=== PATIENT | female | born 1950 | race Hispanic/Latino ===

== ENCOUNTER 2018-07-11 11:57 | Observation (INO) | payer MEDICARE, BC ==
--- NOTE | 2018-07-11 12:49 | ED PDOC ---
Arrival/HPI - General Chief Complaint: Dizziness/Lightheaded Time Seen by Provider: 07/11/18 12:35 Historian: Patient - History of Present Illness Narrative History of Present Illness (Text): 07/11/18 13:12 67 yr old female w/ hx of Brain aneurysm + Clip, R eye blindness, CAD, x1 stent , HTN, DM2 p/w dizziness, now resolved. Pt notes that 2 hrs prior she was having dizziness, constant, non-related to head movement. Pt notes dizziness as lightheadedness as well as vertigo. First time occurence. She also noted L eye blurriness, without eye pain or cloudiness to R eye. She notes her symptoms started improvving on their own, she then took a full 325mg aspirin which then fully resolved her symptoms. No chest pain. She notes mild sob, but no orthopnea , PND or leg swelling. No hx of DVT or blood clots. No recent trauma, surgery. No fever, chills or night sweats. No other complaints. PMD: Dr. Jarek Reyes Past Medical History - Provider Review Nursing Documentation Reviewed: Yes - Infectious Disease Hx of Infectious Diseases: None - Reproductive Menopause: Yes - Cardiac Hx Cardiac Disorders: Yes Hx Hypertension: Yes Other/Comment: cariac stent, - Pulmonary Hx Respiratory Disorders: No - Neurological Hx Neurological Disorder: Yes Other/Comment: barin anerysm with clip - HEENT Hx HEENT Disorder: No Hx Blind: Yes - Renal Hx Renal Disorder: No - Endocrine/Metabolic Hx Endocrine Disorders: No - Hematological/Oncological Hx Blood Disorders: No - Integumentary Hx Dermatological Disorder: No - Musculoskeletal/Rheumatological Hx Musculoskeletal Disorders: No - Gastrointestinal Hx Gastrointestinal Disorders: No - Genitourinary/Gynecological Hx Genitourinary Disorders: No - Psychiatric Hx Substance Use: No - Anesthesia Hx Anesthesia: Yes Hx Anesthesia Reactions: No Family/Social History - Physician Review Nursing Documentation Reviewed: Yes Family/Social History: Unknown Family HX Smoking Status: Smoker Currrent Status Unknown Hx Alcohol Use: Yes Frequency of alcohol use: Socially Hx Substance Use: No Allergies/Home Meds Allergies/Adverse Reactions: Allergies No Known Allergies Allergy (Verified 12/21/16 13:03) Home Medications: Home Meds Medication Instructions Recorded Confirmed MetFORMIN [glucOPHAGE] 1,000 mg PO BID 12/21/16 07/11/18 [id number] Ethyl Esters 1 GM 1 gm PO DAILY 12/21/16 07/11/18 [Lovaza] Quinapril [Accupril] 20 mg PO DAILY 12/21/16 07/11/18 SITagliptin [Januvia] 50 mg PO DAILY 12/21/16 07/11/18 glyBURIDE [Glyburide] 5 mg PO DAILY 12/21/16 07/11/18 Aspirin [Ecotrin] 325 mg PO DAILY 07/11/18 07/11/18 Atorvastatin [Lipitor] 20 mg PO DAILY 07/11/18 07/11/18 Fenofibrate [Tricor] 145 mg PO DAILY 07/11/18 07/11/18 Hctz 25 25 mg PO DAILY 07/11/18 Ibuprofen [Advil] 800 mg PO TID 07/11/18 07/11/18 Metaxalone [Metaxall] 800 mg PO HS 07/11/18 07/11/18 Pregabalin [Lyrica] 75 mg PO TID 07/11/18 07/11/18 Review of Systems - Review of Systems Constitutional: Normal Eyes: Vision Changes (now resolved) Respiratory: Normal Cardiovascular: Normal Gastrointestinal: Normal Genitourinary Female: Normal Musculoskeletal: Normal Skin: Normal Neurological: Normal Endocrine: Normal Hemo/Lymphatic: Normal Psychiatric: Normal Physical Exam Vital Signs Temp Pulse Resp BP Pulse Ox 07/11/18 13:35 97 H 22 133/76 96 07/11/18 12:08 98.1 F 107 H 18 173/72 H 98 Temperature: Afebrile Blood Pressure: Normal Pulse: Regular Respiratory Rate: Normal Appearance: Positive for: Well-Appearing, Non-Toxic, Comfortable Pain Distress: None Mental Status: Positive for: Alert and Oriented X 3 Finger Stick Blood Glucose: 228 - Systems Exam Head: Present: Atraumatic, Normocephalic Pupils: Present: PERRL Extroacular Muscles: Present: EOMI Conjunctiva: Present: Normal Mouth: Present: Moist Mucous Membranes Neck: Present: Normal Range of Motion. No: Meningeal Signs Respiratory/Chest: Present: Clear to Auscultation, Good Air Exchange. No: Respiratory Distress, Accessory Muscle Use Cardiovascular: Present: Regular Rate and Rhythm, Normal S1, S2, Peripheal Pulses Present, Tachycardic. No: Murmurs, Bradycardic, Rub Abdomen: No: Tenderness, Distention, Peritoneal Signs Back: Present: Normal Inspection Upper Extremity: Present: Normal Inspection. No: Cyanosis, Edema Lower Extremity: Present: Normal Inspection. No: Edema Neurological: Present: GCS=15, CN II-XII Intact, Speech Normal, Motor Func Grossly Intact, Normal Sensory Function, Normal Cerebellar Funct, Norm Deep Tendon Reflexes, Gait Normal Skin: Present: Warm, Dry, Normal Color. No: Rashes Psychiatric: Present: Alert, Oriented x 3, Normal Insight, Normal Concentration Medical Decision Making ED Course and Treatment: 07/11/18 13:01 67 yr old female w/ hx of brain aneurysm w/ clip, HTN, DM2, CAD, x1 stent p/w TIA like symptoms which resolved after ASA. She notes SOB is mild improving. She denies any CP. No urinary complaints. No fever, chills or meningeal signs. Code stroke called at this time at 13:01. Fingerstick reading is 228. EKG: Ordered, reviewed, and independently interpreted the EKG. Rate : 110 BPM Rhythm : Sinus tachycardia. Interpretation : No STEMI. No ST-segment elevations or depressions, no T-wave inversions, normal intervals. Comparison : Previous 07/11/18 13:17 Appreciate consult w/ Dr. Reyes: likely obs pending imagin and labs for w/u Appreciate consult w/ Dr. Mensah: to see pt- we are to order CTA. 07/11/2018 13:[address] IMPRESSION: No acute findings. Dictator: Elvis Aj MD 07/11/2018 13:30 Chest X-ray IMPRESSION: No active disease. No acute significant interval changes. Dictator: Jarek Braun MD Neuro exam remains stable UA negative. - Lab Interpretations Lab Results: 07/11/18 13:20 07/11/18 13:20 Lab Results 07/11/18 13:20: Sodium 139, Potassium 4.3, Chloride 101, Carbon Dioxide 23, Anion Gap 20, BUN 14, Creatinine 0.7, Est GFR ( Amer) > 60, Est GFR (Non- Af Amer) > 60, Random Glucose 247 H, Calcium 10.8 H, Total Bilirubin 0.4, AST 19 , ALT 28, Alkaline Phosphatase 72, Troponin I < 0.01, NT-Pro-B Natriuret Pep 79.3, Total Protein 7.6, Albumin 4.9 H, Globulin 2.7, Albumin/Globulin Ratio 1.8 , Triglycerides 846 H, Cholesterol 240 H, LDL Cholesterol Direct 88, HDL Cholesterol 33 07/11/18 13:20: PT 10.8, INR 0.95, APTT 26.1 07/11/18 13:20: WBC 7.0, RBC 4.36, Hgb 13.4, Hct 38.2, MCV 87.6, MCH 30.7, MCHC 35.1, RDW 12.4, Plt Count 344, MPV 10.8, Gran % 62.4, Lymph % (Auto) 28.7, [place] % (Auto) 7.0 H, Eos % (Auto) 1.3 L, Baso % (Auto) 0.6, Gran # 4.39, Lymph # ( Auto) 2.0, [place] # (Auto) 0.5, Eos # (Auto) 0.1, Baso # (Auto) 0.04 07/11/18 13:05: Blood Type B POSITIVE, Antibody Screen Negative, BBK History Checked No verified bt 07/11/18 12:24: POC Glucose (mg/dL) 228 H I have reviewed the lab results: Yes - RAD Interpretation Radiology Orders: 07/11/18 13:05 HEAD W/O (CODE STROKE) [CT] Stat CHEST ONE VIEW [RAD] Stat 07/11/18 13:50 ANGIO [CTA HEAD & NECK BUNDLE] [CT] Stat - Medication Orders Current Medication Orders: Atorvastatin Calcium (Lipitor) 10 mg PO DIN LOUISE NIHSS Stroke Scale 3 - Date/Time Evaluation Performed Date Performed: 07/11/18 Time Performed: 12:40 When Was NIHSS Performed: Code Stroke - How Severe is the Stroke Level of Consciousness: 0=Alert LOC to Questions: 0=Both comments correct LOC to commands: 0=Obeys both correctly Best Gaze: 0=Normal Visual: 0=No visual loss Facial: 0=Normal Motor Arm - Left: 0=No drift Motor Arm - Right: 0=No drift Motor Leg - Left: 0=No drift Motor Leg - Right: 0=No drift Limb Ataxia: 0=Absent Sensory: 0=Normal Best Language: 0=No aphasia Dysarthia: 0=Normal articulation Extinction & Inattention (Neglect): 0=Normal, no object Score: 0 Disposition/Present on Arrival - Present on Arrival Any Indicators Present on Arrival: No History of DVT/PE: No History of Uncontrolled Diabetes: No Urinary Catheter: No History of Decub. Ulcer: No History Surgical Site Infection Following: None - Disposition Have Diagnosis and Disposition been Completed?: Yes Diagnosis: TIA (transient ischemic attack) Disposition: HOSPITALIZED Disposition Time: 15:39 Condition: GOOD
--- NOTE | 2018-07-11 13:24 | CT ---
Date of service: 07/11/2018 PROCEDURE: CT HEAD WITHOUT CONTRAST. HISTORY: Code Stroke COMPARISON: None available. TECHNIQUE: Axial computed tomography images were obtained through the head/brain without intravenous contrast. Radiation dose: Total exam DLP = 862 mGy-cm. This CT exam was performed using one or more of the following dose reduction techniques: Automated exposure control, adjustment of the mA and/or kV according to patient size, and/or use of iterative reconstruction technique. FINDINGS: HEMORRHAGE: No intracranial hemorrhage. BRAIN: No mass effect or edema. There is focal encephalomalacia in the right inferior frontal lobe. This is adjacent to aneurysm clips in the suprasellar cistern. VENTRICLES: Unremarkable. No hydrocephalus. CALVARIUM: There has been a right-sided craniotomy PARANASAL SINUSES: There is opacification of the right frontal sinus MASTOID AIR CELLS: Unremarkable as visualized. No inflammatory changes. OTHER FINDINGS: None. IMPRESSION: No acute findings
[2018-07-11 13:30] LABS: BASO # 0.04 K/mm3 (0.0-2.0); BASO % 0.6 % (0.0-3.0); EOS # 0.1 (0.0-0.7); EOS % 1.3 % (1.5-5.0); GRAN # 4.39 (1.4-6.5); GRAN % 62.4 % (50.0-68.0); HEMOGLOBIN 13.4 g/dL (12.0-16.0); LYMPH % 28.7 % (22.0-35.0); MEAN CELL VOLUME 87.6 fl (80.0-105.0); MEAN CORPUSCULAR HEMOGLOBIN 30.7 pg (25.0-35.0); MEAN CORPUSCULAR HGB CONC 35.1 g/dl (31.0-37.0); MEAN PLATELET VOLUME 10.8 fl (7.0-11.0); MONO # 0.5 (0.1-0.6); RBC 4.36 10^6/uL (3.5-6.1); RED CELL DISTRIBUTION WIDTH 12.4 % (11.5-14.5)
--- NOTE | 2018-07-11 13:31 | RAD ---
Date of service: 07/11/2018 PROCEDURE: CHEST RADIOGRAPH, 1 VIEW HISTORY: Code Stroke COMPARISON: 12/11/2016. FINDINGS: LUNGS: Clear. PLEURA: No pneumothorax or pleural fluid seen. CARDIOVASCULAR: No radiographic findings to suggest acute or significant cardiovascular disease. OSSEOUS STRUCTURES: No significant abnormalities. VISUALIZED UPPER ABDOMEN: Normal. OTHER FINDINGS: None. IMPRESSION: No active disease. No acute/significant interval changes.
[2018-07-11 13:38] LABS: ALB/GLOB RATIO 1.8 (1.1-1.8); ALBUMIN 4.9 g/dL (3.0-4.8); ALT/SGPT 28 U/L (7-56); AST/SGOT 19 U/L (14-36); BLOOD UREA NITROGEN 14 mg/dL (7-21); CALCIUM 10.8 mg/dL (8.4-10.5); GFR AFRICAN-AMERICAN > 60; GFR NON-AFRICAN AMERICAN > 60; HDL CHOLESTEROL 33 mg/dL (29-60)
[2018-07-11 13:39] LABS: INR 0.95; PARTIAL THROMBOPLASTIN TIME 26.1 Seconds (25.1-36.5); PROTHROMBIN TIME 10.8 SECONDS (9.4-12.5)
[2018-07-11 13:49] LABS: LDL CHOLESTEROL 88 mg/dL (0-129)
[2018-07-11 13:52] LABS: B-TYPE NATRIURETIC PEPTIDE 79.3 pg/mL (0-450); TROPONIN I < 0.01 ng/mL
[2018-07-11] MEDS ORDERED: Iohexol 350 MG/100 ML VIAL ONE (14:16)
[2018-07-11 16:51] LABS: URINE APPEARANCE CLEAR (CLEAR); URINE BILIRUBIN NEGATIVE (NEGATIVE); URINE BLOOD NEGATIVE (NEGATIVE); URINE COLOR LIGHT YELLOW (YELLOW); URINE GLUCOSE (UA) 500 mg/dL (NEGATIVE); URINE LEUKOCYTE ESTERASE NEGATIVE Leu/uL (NEGATIVE); URINE PROTEIN NEGATIVE mg/dL (<30 mg/dL); URINE UROBILINOGEN 0.2 E.U./dL (<1 E.U./dL)
[2018-07-11 17:43] VITALS: RESP 20
--- NOTE | 2018-07-11 17:50 | CARD ---
APPROVED REPORT Date of service: 07/11/2018 EKG Measurement Heart [id number] <Conclusion> Sinus tachycardia with frequent premature ventricular complexes Left anterior fascicular block Minimal voltage criteria for LVH, may be normal variant Anterior infarct, age undetermined Abnormal ECG
--- NOTE | 2018-07-11 18:04 | CT ---
Date of service: 07/11/2018. PROCEDURE: CT Angiography of the neck and brain with contrast. HISTORY: History of aneurysm COMPARISON: Comparison made with noncontrast CT scan of the brain earlier same day TECHNIQUE: Contiguous helical/transaxial images dated of the neck and brain were obtained from the level of the vertex of the skull to the superior mediastinum in the arteriographic phase of enhancement. Coronal and sagittal reformats or also generated. IV contrast dose: 100 cc Visipaque 350 Radiation Dose - DLP: 62.42 mGy-cm This CT exam was performed using one or more of the following dose reduction techniques: Automated exposure control, adjustment of the mA and/or kV according to patient size, and/or use of iterative reconstruction technique. . FINDINGS: There are partially calcified atherosclerotic plaque changes seen along the transverse and proximal descending thoracic aorta. Minor partially calcified atherosclerotic plaque seen along the origins of the right brachiocephalic and left subclavian. The visualized common carotid arteries widely patent. Mild partially calcified atherosclerotic plaque seen along left carotid bifurcation extending slightly superiorly along the lateral margin of the left proximal internal carotid artery. No significant stenosis. RIGHT CAROTID ARTERIES: Right carotid bifurcation widely patent. The internal carotid arteries are also widely patent with no evidence of occlusion or significant stenosis. No evidence of section The distal internal carotid arteries are also patent without evidence of occlusion significant stenosis or dissection. Re- demonstrated is an aneurysm clip in the region of the anterior communicating artery which results in significant surrounding streak and beam hardening artifact obscuring fine detail. . . There appears to be a residual aneurysm estimated at approximately 5 mm just superior to the aneurysm clip (see axial series 3 image number [id number]). . Recommend followup MRA brain for further evaluation provided that the aneurysm clip is MR compatible . Ultimately four-vessel cerebral angiogram may be required for definitive diagnosis. The vertebral arteries are patent and symmetric throughout . No evidence of occlusion significant stenosis or dissection. The basilar artery is patent. A1 segments some incompletely visualized. The distal middle cerebral artery and branches appear relatively though patent. The posterior cerebral arteries are also patent Note is made of low-attenuation changes seen in the right parasagittal frontal lobe was bordering the interhemispheric fissure just above the level of the aneurysm clip findings likely post surgical sequela of aneurysm rupture in the past. Clinical correlation recommended. IMPRESSION: Right pterional craniotomy and aneurysm clipping. There appears to be residual aneurysm just above the aneurysm clip at the level of the anterior communicating artery which measures approximately estimated at approximately 5 mm (see axial series 3, image number [id number]). . This must be confirmed with MRA of the brain provided that the aneurysm clip is MRI compatible however ultimately, traditional four-vessel cerebral angiogram may be required for definitive diagnosis to exclude or confirm the presence of residual aneurysm. Note these findings were discussed with Dr. Bang at approximately 6 p.m. with written down and read back verification.
[2018-07-11] MEDS: Insulin Reg-LOW-Coverage SC SCH (21:42)
[2018-07-11] MEDS ORDERED: METAXALONE 800 MG PO SCH (22:00)
[2018-07-11 22:21] VITALS: BMI 33.3
[2018-07-11] MEDS ORDERED: Pneumococcal 23-Valent Vaccine IM ONE (22:21)
--- NOTE | 2018-07-12 03:33 | HP ---
Copied To: Jarek Reyes DO Attending MD: Jarek Reyes DO HISTORY OF PRESENT ILLNESS: I know her very well from the office. She comes in being lightheaded and dizziness. She is a 67-year-old female who was in the supermarket, banged around little bit, and then family brought her to the emergency room. She do not want to go, but i made the family bring her here. She has a past medical history of brain aneurysm and clip, right eye blindness, coronary artery disease with one stent, hypertension, diabetes. She has dizziness which is now resolved. She had this 2 hours early with dizziness, constant, not related to head motion, also vertigo. First time, she had this occurrence, also left eye blurriness without any pain or cloudiness. This went away on her own, they did take a 325 aspirin which they felt helped resolve the symptoms. No chest pain. Mild shortness of breath. No orthopnea. No recent trauma or surgery. No fever, chills, or sweats. She has hypertension. She has diabetes. She had brain aneurysm with a clip in the past. She has cardiac stent. She is blind in an eye, right eye is blind, although there was cloudiness. FAMILY HISTORY: Unknown. SOCIAL HISTORY: She is not supposed to smoke anymore, socially alcohol. No substance abuse. ALLERGIES: NO KNOWN DRUG ALLERGIES. MEDICATIONS: Glucophage, Lovaza, Accupril, Januvia, glyburide, Ecotrin, Lipitor, TriCor, hydrochlorothiazide, Availnex, Taxol, and Lyrica. REVIEW OF SYSTEMS: She had vision changes, but they are now resolved. No hearing changes. She is sitting out of bed to chair, talking with her son. No shortness of breath or cough. No chest pain or palpitations. No nausea, vomiting, constipation, or diarrhea. No problems urinating. No back pain or leg pain. Skin, no apparent rashes or ulcers that she knows of. She was dizzy, that is resolved. Also vertigo, better. No weakness or anything new as far as strength changes. No depression or anxiety. PHYSICAL EXAMINATION: VITAL SIGNS: She has a 98.1 temperature, 107 pulse, 18 respiratory rate, 173/72 blood pressure, 98% O2 sat on room air. GENERAL: She is well appearing, nontoxic, comfortable, positive, alert and oriented x3. HEENT: Head is atraumatic, normocephalic. Extraocular muscles are intact. Pupils are equal and reactive to light. Throat is moist. NECK: Supple. HEART: Regular rate. Normal S1, S2. LUNGS: Decreased breath sounds, but clear to auscultation bilaterally. No wheezes, no rhonchi, no rales. ABDOMEN: Soft, nontender. Positive bowel sounds. Obese. No guarding, no rebound or CVA tenderness. EXTREMITIES: No edema bilaterally. NEUROLOGIC: GCS is 15. Cranial nerves II through XII grossly intact. Speech is normal. Tongue is midline. Alert and oriented x3. LYMPH NODES: No palpable lymphadenopathy. Thyroid midline. LABORATORY DATA: She had multiple tests done. She had a head and neck CTA. She cannot get an MRI because the clips in her brain are metal. She had a right pterional craniotomy and aneurysmal clipping. There appears to be residual aneurysm just above the aneurysm clip at the level of anterior communicating artery which measures approximately estimated 5 mm. I will call in a neurosurgeon. Neurology is already on the case. Head CT was okay. Chest x-ray was okay. EKG showed possible anterior infarct, age undetermined. She has a 139 sodium, potassium 4.3. BUN 14 , creatinine 0.7. GFR is greater than 60. Sugar is 247 and 228. Calcium is 10.8. Total bili is 0.4, AST is 19, ALT is 28, alk phos 72. Troponin I is less than 0.01. BNP is 79.3. Total protein 7.6, albumin is 4.9, globulin is 2.7. Triglycerides are very high at 846. I put her back on her medications for that. Cholesterol is 240, LDL is 88. INR is 0.95. She has a 7 white count, 13.4 hemoglobin, 38.2 hematocrit with 344 platelets. Urine was 500 glucose. She is actually noncompliant with her medications for the most part and she eats whatever she wants. She will be on a 2 g sodium, low sugar diet. She will be back on the medications. She will have IV fluids and oxygen, and neurosurgeon and Neurology consult. She is in observation at this time. She is actually here for TIA, now with TIA with brain aneurysm, dizziness which is resolved, history of diabetes, high triglycerides, high cholesterol, hypertension, noncompliance. We will see how she does. Jarek Reyes DO KYLEE
[2018-07-12 07:33] LABS: HEMOGLOBIN 13.7 g/dL (12.0-16.0); MEAN CELL VOLUME 88.8 fl (80.0-105.0); MEAN CORPUSCULAR HEMOGLOBIN 30.7 pg (25.0-35.0); MEAN CORPUSCULAR HGB CONC 34.6 g/dl (31.0-37.0); MEAN PLATELET VOLUME 10.3 fl (7.0-11.0); RBC 4.46 10^6/uL (3.5-6.1); RED CELL DISTRIBUTION WIDTH 12.5 % (11.5-14.5); WHITE BLOOD COUNT 7.7 10^3/ul (4.5-11.0)
[2018-07-12 08:05] LABS: ALB/GLOB RATIO 1.8 (1.1-1.8); ALBUMIN 4.9 g/dL (3.0-4.8); ALT/SGPT 28 U/L (7-56); AST/SGOT 17 U/L (14-36); BLOOD UREA NITROGEN 16 mg/dL (7-21); CALCIUM 9.9 mg/dL (8.4-10.5); GFR AFRICAN-AMERICAN > 60; GFR NON-AFRICAN AMERICAN > 60
[2018-07-12] MEDS: Insulin Reg-LOW-Coverage SC SCH ×2 (08:08→11:44)
[2018-07-12 09:53] VITALS: BP 141/71; PULSE 92; TEMP 98.1; O2SAT 94
[2018-07-12] MEDS ORDERED: Aspirin 325 mg EC Tablets PO SCH (10:00)
--- NOTE | 2018-07-12 12:58 | CP.PCM.CON ---
History of Present Illness - History of Present Illness History of Present Illness: 67 yr old woman who has a pmh of w/ hx of Brain aneurysm + Clip, R eye blindness, CAD, x1 stent, HTN, DM2 p/w dizziness, now resolved. Pt notes that 2 hrs prior she was having dizziness, constant, non-related to head movement. Pt notes dizziness as lightheadedness as well as vertigo. First time occurence. She also noted L eye blurriness, without eye pain or cloudiness to R eye. She notes her symptoms started improvving on their own, she then took a full 325mg aspirin which then fully resolved her symptoms. No chest pain. She notes mild sob, but no orthopnea, PND or leg swelling. No hx of DVT or blood clots. No recent trauma, surgery. No fever, chills or night sweats. No other complaints. PMD: Dr. Jarek Reyes On exam: Past Patient History - Infectious Disease Hx of Infectious Diseases: None - Past Social History Smoking Status: Former Smoker - CARDIAC Hx Cardiac Disorders: Yes (CAD) Hx Hypertension: Yes Other/Comment: cariac stent, - PULMONARY Hx Respiratory Disorders: Yes (USED TO SMOKE CIGARETTES.QUIT) Hx Bronchitis: Yes - NEUROLOGICAL Hx Neurological Disorder: Yes Hx Dizziness: Yes Other/Comment: barin aneurysm with 4 clips - HEENT Hx HEENT Problems: Yes Hx Blind: Yes (RIGHT EYE) - RENAL Hx Chronic Kidney Disease: No - ENDOCRINE/METABOLIC Hx Endocrine Disorders: Yes (GRAVE'S DSE) Hx Hyperthyroidism: Yes - HEMATOLOGICAL/ONCOLOGICAL Hx Blood Disorders: No - INTEGUMENTARY Hx Dermatological Problems: No - MUSCULOSKELETAL/RHEUMATOLOGICAL Hx Musculoskeletal Disorders: Yes (SHOULDER SX.) Hx Falls: Yes - GASTROINTESTINAL Hx Gastrointestinal Disorders: No - GENITOURINARY/GYNECOLOGICAL Hx Genitourinary Disorders: Yes (TUBAL LIGATION) - PSYCHIATRIC Hx Psychophysiologic Disorder: Yes (USED TO SMOKE CIGARETTES AND DRINK ALCOHOL QUIT) Hx Substance Use: No - SURGICAL HISTORY Hx Surgeries: Yes (BRAIN ANEURYSM WITH 4 CLIPS.TUBAL LIGATION,HEART STENT X 1. SHOULDER SX) Hx Coronary Stent: Yes (X1) - ANESTHESIA Hx Anesthesia: Yes Hx Anesthesia Reactions: No Meds Allergies/Adverse Reactions: Allergies Allergy/AdvReac Type Severity Reaction Status Date / Time No Known Allergies Allergy Verified 07/11/18 19:02 - Medications Medications: Current Medications Aspirin (Ecotrin) 81 mg PO DAILY [facility] Last Admin: 07/12/18 10:23 Dose: Not Given Aspirin (Ecotrin) 325 mg PO DAILY [facility] Last Admin: 07/12/18 10:24 Dose: 325 mg Atorvastatin Calcium (Lipitor) 10 mg PO DIN [facility] Last Admin: 07/11/18 17:40 Dose: 10 mg Atorvastatin Calcium (Lipitor) 20 mg PO DAILY [facility] Fenofibrate (Tricor) 145 mg PO DAILY [facility] Last Admin: 07/12/18 10:24 Dose: 145 mg Glyburide (Micronase) 5 mg PO DAILY [facility] Last Admin: 07/12/18 10:24 Dose: 5 mg Insulin Human Regular (Humulin R Low) 0 units SC ACHS [facility] PRN Reason: Protocol Last Admin: 07/12/18 11:44 Dose: 3 unit Lisinopril (Zestril) 20 mg PO DAILY [facility] Last Admin: 07/12/18 10:24 Dose: 20 mg Metformin HCl (Glucophage) 1,000 mg PO BID [facility] Non-Formulary Medication (Metaxalone [Metaxall]) 800 mg PO HS [facility] Last Admin: 07/11/18 21:29 Dose: Not Given Sitagliptin Phosphate (Januvia) 50 mg PO DAILY [facility] Last Admin: 07/12/18 10:24 Dose: 50 mg Results - Vital Signs Recent Vital Signs: Last Vital Signs Temp 98.1 F 07/12/18 06:00 Pulse 92 H 07/12/18 10:24 Resp 20 07/12/18 06:00 BP 141/71 07/12/18 10:24 Pulse Ox 94 L 07/12/18 06:00 - Labs Result Diagrams: 07/12/18 07:00 07/12/18 07:00 Labs: Laboratory Results - last 24 hr 07/11/18 07/12/18 07/12/18 16:04 07:00 07:00 WBC 7.7 RBC 4.46 Hgb 13.7 Hct 39.6 MCV 88.8 MCH 30.7 MCHC 34.6 RDW 12.5 Plt Count 331 MPV 10.3 Sodium 139 Potassium 4.4 Chloride 99 Carbon Dioxide 25 Anion Gap 19 BUN 16 Creatinine 0.7 Est GFR ( Amer) > 60 Est GFR (Non-Af Amer) > 60 Random Glucose 275 H Calcium 9.9 Total Bilirubin 0.6 AST 17 ALT 28 Alkaline Phosphatase 55 Total Protein 7.6 Albumin 4.9 H Globulin 2.7 Albumin/Globulin Ratio 1.8 Urine Color Light yellow Urine Appearance Clear Urine pH 6.0 Ur Specific Sentinel 1.015 Urine Protein Negative Urine Glucose (UA) 500 H Urine Ketones Negative Urine Blood Negative Urine Nitrate Negative Urine Bilirubin Negative Urine Urobilinogen 0.2 Ur Leukocyte Esterase Negative Blood Type Confirm 07/12/18 08:10 WBC RBC Hgb Hct MCV MCH MCHC RDW Plt Count MPV Sodium Potassium Chloride Carbon Dioxide Anion Gap BUN Creatinine Est GFR ( Amer) Est GFR (Non-Af Amer) Random Glucose Calcium Total Bilirubin AST ALT Alkaline Phosphatase Total Protein Albumin Globulin Albumin/Globulin Ratio Urine Color Urine Appearance Urine pH Ur Specific Sentinel Urine Protein Urine Glucose (UA) Urine Ketones Urine Blood Urine Nitrate Urine Bilirubin Urine Urobilinogen Ur Leukocyte Esterase Blood Type Confirm B POSITIVE Assessment & Plan - Assessment and Plan (Free Text) Assessment: CT head: normal. CTA: shows a residual aneurysm measuring 5 mm above the RAMEZ, with prior aneurysmal clipping noted. 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 PCOM aneurysm which would be concerning, is not found. It is unclear if this was present on last neurosurgical followup. She will need an evaluation by neurosurgery or neurointerventional as to further management of this aneurysm. plan: 1. MRA of brain 2. Neurosurgical evaluation. Thank you Dr storm
--- NOTE | 2018-07-13 03:35 | DS ---
Copied To: Jarek Reyes DO Attending MD: Jarek Reyes DO HISTORY OF PRESENT ILLNESS: She is sitting out of bed, resting comfortably with family present. She is back to her old self. 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 Simpson to get to the chart. He has not spoken to anybody that we know. No nurses. There are no notes in the chart. There is even no note from the Neurologist, but I known she is yet to get so we called the Neurosurgeon to take a look at her because this was aneurysm that we were not expecting to find, but she is comfortable at [id number], laughing, eating, and talking with family. No residual side effects, could have been a TIA. PHYSICAL EXAMINATION: VITAL SIGNS: She has a 98.1 temperature, 92 pulse, 141/71 blood pressure, 20 respiratory rate, 94% O2 sat on room air. HEENT: Head is atraumatic, normocephalic. HEART: Regular rate. LUNGS: Clear to auscultation. ABDOMEN: Soft. EXTREMITIES: No edema. She could walk. She could stand. She could raise both arms overhead. Midline tongue, which arise all over the place. Smiling, happy. No acute _problems 1:04. MEDICATIONS: She was on Ecotrin, Glucophage, Januvia, Lipitor, Metazol, Micronase, TriCor and Zestril. We held the Glucophage because of the diet she got in yesterday's test. LABORATORY DATA: She was 7.7 white count, 13.7 hemoglobin, 39.6 hematocrit with a 331 platelets. 0.95 INR. She has a 139 sodium, potassium 4.4. BUN 16, creatinine 0.7. GFR is greater than 60. Sugar is 275 without the metformin. Calcium is 9.9. Total bili is 0.6. AST is 17, ALT is 28, alk phos 55. Total protein 7.6. Urine was clean. ASSESSMENT AND PLAN: I discussed this with the nurse awaiting for a phone call to come back from the Neurosurgeon, if we do not hear from him by 2 o'clock, I will discharge her home. We will always bring her back in if we have to. Clinically, she is stable. She could go on her same medications and hopefully we will switch to transient ischemic attack and that is for residual aneurysm and nothing to do. If he changes his mind since he has do studying, we will bring her back in. She understands this as the patient, so did the nurse. Jarek Reyes DO MTDD
== END 2018-07-12 15:41 | disposition home or self-care (01) ==
LOC: ED 11:57 → ERH 15:38 → 3RSO 16:38
PROVIDERS: ADMIT Family Medicine; ATTEND Family Medicine
DX: I67.1 Cerebral aneurysm, nonruptured (principal); G45.9 Transient cerebral ischemic attack, unspecified; E11.9 Type 2 diabetes mellitus without complications; H54.61 Unqualified visual loss, right eye, normal vision left eye; I10 Essential (primary) hypertension; I25.10 Atherosclerotic heart disease of native coronary artery without angina pectoris; Z79.82 Long term (current) use of aspirin; Z87.891 Personal history of nicotine dependence; Z95.5 Presence of coronary angioplasty implant and graft; E05.90 Thyrotoxicosis, unspecified without thyrotoxic crisis or storm; Z98.51 Tubal ligation status
CPT/HCPCS: 36415; 70450; 70496; 70498; 71045; 80053; 80061; 81003; 82948; 83036; 83880; 84484; 85025; 85027; 85610; 85730; 86850; 86900; 93005; 99285; G0378; Q9967

== ENCOUNTER 2018-12-19 11:40 | Outpatient (CLI) | payer MEDICARE, BC | END 2018-12-19 11:41 | disposition home or self-care (01) | LOC: RAD 11:40 ==

== ENCOUNTER 2019-01-01 08:11 | Outpatient (CLI) | payer MEDICARE, BC | END 2019-01-01 08:12 | disposition home or self-care (01) | LOC: RAD 08:11 | DX: I10 Essential (primary) hypertension (principal) ==

== ENCOUNTER 2019-03-30 08:42 | Outpatient (CLI) | payer MEDICARE, BC | END 2019-03-30 08:43 | disposition home or self-care (01) | LOC: LAB 08:42 ==